=== PATIENT | male | born 1965 | race Caucasian/White ===

== ENCOUNTER 2019-06-11 18:56 | Emergency (ER) | payer OTHER ==
[~2019-06-11] VITALS: Wt 113.4 kg
[2019-06-11] MEDS ORDERED: Motrin,Rufen800 MG PO (22:46)
[2019-06-11] MEDS ORDERED: CYCLOBENZAPRINE5 M3 PO (22:46)
== END 2019-06-11 23:32 | disposition home or self-care (01) ==
LOC: ED 18:56
DX: M48.56XA Collapsed vertebra, not elsewhere classified, lumbar region, initial encounter for fracture (principal); S82.002A Unspecified fracture of left patella, initial encounter for closed fracture; V86.25XA Person on outside of 3- or 4- wheeled all-terrain vehicle (ATV) injured in traffic accident, initial encounter

== ENCOUNTER 2019-06-12 10:27 | Emergency (ER) | payer OTHER ==
[~2019-06-12] VITALS: Ht 167.6 cm; Wt 113.4 kg
[~2019-06-12 10:27] MED LIST: CYCLOBENZAPRINE5 M3 PO; Motrin,Rufen800 MG PO
== END 2019-06-12 12:27 | disposition home or self-care (01) ==
LOC: ED 10:27
DX: T14.90XA Injury, unspecified, initial encounter (principal); Z79.899 Other long term (current) drug therapy; V86.05XA Driver of 3- or 4- wheeled all-terrain vehicle (ATV) injured in traffic accident, initial encounter; Y93.89 Activity, other specified; Y92.89 Other specified places as the place of occurrence of the external cause; Y99.8 Other external cause status